=== PATIENT | female | born 1960 | race African-American/Black ===

== ENCOUNTER → 2018-09-22 | Outpatient (CLI) | payer MEDICAID ==
--- NOTE | 2018-09-23 14:09 | WOMENS IMAGING REPORT ---
EXAM DESCRIPTION: 3D SCREENING MAMMO BILAT COMPLETED DATE/TIME: 09/22/2018 3:12 pm REASON FOR STUDY: Z12.31 ROUTINE 3D BILATERAL SCREENING Z12.31 ENCNTR SCREEN MAMMOGRAM FOR MALIGNAN T NEOPLASM OF DARBY COMPARISON: None. TECHNIQUE: Standard craniocaudal and mediolateral oblique views of each breast recorded using digita l acquisition and breast tomosynthesis. LIMITATIONS: None. FINDINGS: No masses, calcifications or architectural distortion. No areas of suspicion. Read with the assistance of CAD. .[facility] - R2 Cenova Version 1.3 .[facility] Imaging - R2 Cenova Version 2.1 .[facility] - R2 Cenova Version 2.4 .[facility] [place] R2 Cenova Version 2.4 .[facility] BEDS AT THE [facility] - R2 Entrepreneur Version 9.2 IMPRESSION: NORMAL MAMMOGRAM. BIRADS 1. BREAST DENSITY: b. There are scattered areas of fibroglandular density. BIRAD: 1 NEGATIVE RECOMMENDATION: ROUTINE SCREENING COMMENT: The patient has been notified of the results by letter per SA requirements. Additional no tification policies are in place for contacting patient with suspicious or incomplete findings. Quality ID #[id number]: The [employer] recommends an annual screening mammogram for women aged 40 years or over. This facility utilizes a reminder system to ensure that all patients receive reminder letters, and/or direct phone calls for appointments. This includes reminders for routine scr eening mammograms, diagnostic mammograms, or other Breast Imaging Interventions when appropriate. Th is patient will be placed in the appropriate reminder system. The [employer] (ACR) has developed recommendations for screening MRI of the breast s in certain patient populations, to be used in conjunction with mammography. Breast MRI surveillanc e may be appropriate for women with more than 20% lifetime risk of developing breast cancer as deter mined by genetic testing, significant family history of the disease, or history of mantle radiation f or Hodgkins Disease. ACR Practice Guidelines 2008. DBT Technology DBT is a type of tomographic mammography. With conventional mammography, overlapping breast tissue ma y make lesions difficult to detect, even with good compression. DBT uses an x-ray tube that rotates a round the breast, taking images at different angles. These images are then combined to create thin sl ices of the breast that the radiologist can view as a 3D reconstruction. The [employer] unit can perform full-field digital mammograms (2D imaging); or DBT (3D imaging); or both, in a combination mode that quickly performs both the mammogram and the tomosynthesis scan while the breast is still compressed. PQRS 6045F: Fluoroscopic imaging is not utilized for breast tomosynthesis. TECHNICAL DOCUMENTATION: FINDING NUMBER: (1) ASSESSMENT: (1) JOB ID: [id number] [employer]- All Rights Reserved Reading location - IP/workstation name: [email or web address]-
== END ==
LOC: WI 14:50
PROVIDERS: ATTEND Internal Medicine Geriatric Medicine
DX: Z12.31 Encounter for screening mammogram for malignant neoplasm of breast (principal)
CPT/HCPCS: 77063; 77067

== ENCOUNTER 2020-02-20 14:55 | Emergency (ER) | payer MEDICAID ==
--- NOTE | 2020-02-20 15:08 | ER Document Report ---
ED General - General Chief Complaint: Psych Problem Stated Complaint: PSYCH Time Seen by Provider: 02/20/20 15:01 Primary Care Provider: JORGE HERNANDEZ MD [Primary Care Provider] - Follow up as needed Notes: 60-year-old female presents with bizarre behavior poor self-care brought in on IVC paperwork. She is a history of psychosis and dementia. She is unwilling to tell me why she is here and was going on. Multiple ED visits for decompensated schizophrenia. TRAVEL OUTSIDE OF THE [place] IN LAST 30 DAYS: No - Related Data Allergies/Adverse Reactions: Penicillins Allergy (Severe, Verified 01/19/16 03:59) Past Medical History - General Information source: Law Enforcement Cannot obtain history due to: Dementia - Social History Smoking Status: Current Every Day Smoker Family History: Reviewed & Not Pertinent - Past Medical History Cardiac Medical History: Reports: Hx Hypertension Neurological Medical History: Reports: Hx Cerebrovascular Accident Psychiatric Medical History: Reports: Hx Schizophrenia - Immunizations Immunizations up to date: No Hx Diphtheria, Pertussis, Tetanus Vaccination: Yes Review of Systems - Review of Systems Notes: REVIEW OF SYSTEMS Fuses PHYSICAL EXAMINATION General: Malodorous and poorly groomed Head: Atraumatic, normocephalic ENT: Mouth normal, oropharynx moist, no exudates or tonsillar enlargement Eyes: Conjunctiva normal, pupils equal, lids normal Neck: No JVD, supple, no guarding CVS: Normal rate, regular rhythm, no murmurs Resp: No resp distress, equal and normal breath sounds bilaterally GI: Nondistended, soft, no tenderness to palpation, no rebound or guarding Ext: No deformities, no edema, normal range of motion in upper and lower ext Back: No CVA or midline TTP Skin: No rash, warm Lymphatic: No lymphadeopathy noted Neuro: Awake, alert. Face symmetric. GCS 15. Course - Re-evaluation Re-evalutation: 02/20/20 15:24 Decompensated since nephronia plus or minus dementia. Will do basic medical work-up at this very likely to be primary psych. Defer to behavioral health regarding further treatment and plan but they have already said they are going to do a first eval and likely refer her out. Dr. Hollingsworth is aware of the patient. She is medically cleared. Discharge - Discharge Clinical Impression: Psychosis Qualifiers: Psychosis type: other Qualified Code(s): F28 - Other psychotic disorder not due to a substance or known physiological condition Condition: Good Disposition: PSYCH HOSP/UNIT Referrals: JORGE HERNANDEZ MD [Primary Care Provider] - Follow up as needed
[2020-02-20 16:57] LABS: ABSOLUTE EOSINOPHILS # (AUTO) 0.1 10^3/uL (0.0-0.6); ABSOLUTE LYMPHOCYTES (AUTO) 1.4 10^3/uL (0.5-4.7); ABSOLUTE MONOCYTES (AUTO) 0.3 10^3/uL (0.1-1.4); ABSOLUTE NEUT (AUTO) 1.7 10^3/uL (1.7-8.2); BASOPHILS % (AUTO) 0.8 % (0-2); EOSINOPHILS % (AUTO) 1.9 % (0-6); HEMOGLOBIN 11.7 g/dL (12.0-15.5); LYMPHOCYTES % (AUTO) 39.3 % (13-45); MEAN CORPUSCULAR HEMOGLOBIN 30.2 pg (27.0-33.4); MEAN CORPUSCULAR HGB CONC 33.4 g/dL (32.0-36.0); MEAN CORPUSCULAR VOLUME 90 fl (80-97); MONOCYTES % (AUTO) 9.5 % (3-13); PLATELET COUNT 147 10^3/uL (150-450); RED BLOOD COUNT 3.88 10^6/uL (3.72-5.28); RED CELL DISTRIBUTION WIDTH 14.3 % (11.5-14.0); SEGMENTED NEUTROPHILS % (AUTO) 48.5 % (42-78); TOTAL CELLS COUNTED % (AUTO) 100 %; WHITE BLOOD COUNT 3.5 10^3/uL (4.0-10.5)
[2020-02-20 17:01] LABS: APPEARANCE,URINE CLEAR; BILIRUBIN,URINE NEGATIVE (NEGATIVE); COLOR,URINE YELLOW; GLUCOSE, URINE NEGATIVE (NEGATIVE); KETONES,URINE NEGATIVE (NEGATIVE); LEUKOCYTE ESTERASE,URINE NEGATIVE (NEGATIVE); NITRITE,URINE NEGATIVE (NEGATIVE); PROTEIN,URINE 30 mg/dL (NEGATIVE); URINE SPECIFIC GRAVITY 1.026
[2020-02-20 17:10] LABS: URINE AMPHETAMINES SCREEN NEGATIVE; URINE BARBITURATES SCREEN NEGATIVE; URINE BENZODIAZEPINES SCREEN NEGATIVE; URINE COCAINE SCREEN NEGATIVE; URINE MARIJUANA (THC) SCREEN NEGATIVE; URINE METHADONE SCREEN NEGATIVE; URINE PHENCYCLIDINE SCREEN NEGATIVE
[2020-02-20 17:12] LABS: ALBUMIN 3.5 g/dL (3.5-5.0); ALKALINE PHOSPHATASE 75 U/L (38-126); ASPARTATE AMINO TRANSFERASE 23 U/L (14-36); BILIRUBIN,DIRECT 0.3 mg/dL (0.0-0.4); BILIRUBIN,TOTAL 0.6 mg/dL (0.2-1.3); BLOOD UREA NITROGEN 11 mg/dL (7-20); CALCIUM 8.9 mg/dL (8.4-10.2); GLUCOSE 87 mg/dL (75-110); POTASSIUM 3.4 mmol/L (3.6-5.0); TOTAL PROTEIN 6.5 g/dL (6.3-8.2)
[2020-02-20 17:14] LABS: ACETAMINOPHEN < 10 ug/mL (10-30); ALCOHOL < 10 mg/dL (NONE DETECTED); SALICYLATE < 1.0 mg/dL (2.0-20.0)
[2020-02-20 17:17] LABS: CHLORIDE 107 mmol/L (98-107)
[2020-02-20] MEDS: HYDROCHLOROTHIAZIDE 12.5 MG TABLET PO SCH (17:17)
[2020-02-20] MEDS: LISINOPRIL 10 MG TABLET PO SCH (17:17)
[2020-02-20 17:18] LABS: ANION GAP 5 (5-19); CARBON DIOXIDE 29 mmol/L (22-30)
--- NOTE | 2020-02-20 17:49 | ER Document Report ---
Doctor's Note Notes: 02/20/20 14:08 Received call from [facility] dispatch who patched through an officer on scene with patient at a motel. He reported they were contacted by the Patient's son who reported his mother had become increasingly aggressive, yelling at people, urinating on herself, walking around half dressed, and being medication non-comp liant. The officer reported the hotel management indicated they would like the Patient removed from the property as they feel she has a mental health problem and requires treatment. They found her sitting in a chair on the front porch of the hotel with only a shirt on, sitting there for the last 24 hours. She rents a room at the hotel but the room is ruined from the patient urinating on the carpet, the bed, etc. Patient reportedly was sleeping on the stairs to the hotel last evening. Patient was alert and oriented but resistant to help, refusing to leave and her family was not cooperative either. Patient is known to have a significant mental health problem and a history of stroke dating back at least 9 years, possibly longer. Based on her ongoing psychiatric history, medical history, family (possible patient history) of substance abuse, current inability to care for self, make decisions regarding safety, engage in proper hygiene, etc., Patient was placed on a 24-hour petition. [facility] was advised to contact EMS for transport as there was concern for Patient decompensation based on her medical history. This craft worker spoke with Tryel Arango, [employer] Clerk on scene and explained the rationale for EMS transport.
[2020-02-20] MEDS ORDERED: CLONIDINE 0.1 MG/24 HR PATCH.TDWK TD ONE (18:51)
--- NOTE | 2020-02-20 18:52 | ER Document Report ---
Doctor's Note Notes: 02/20/20 18:52 Per psychiatric recommendations patient has been written for clonidine 1 mg patch as well as BuSpar 5 mg p.o. twice daily.
[2020-02-20] MEDS: BUSPIRONE HCL 10 MG TABLET PO SCH (19:43)
[2020-02-21] MEDS: BUSPIRONE HCL 10 MG TABLET PO SCH (09:18)
[2020-02-21] MEDS: LISINOPRIL 10 MG TABLET PO SCH (09:18)
[2020-02-21] MEDS: HYDROCHLOROTHIAZIDE 12.5 MG TABLET PO SCH (09:19)
--- NOTE | 2020-02-21 12:53 | PSYCHOLOGICAL NOTE ---
Psych Note - Psych Note Date seen by psych provider: 02/21/20 Time seen by psych provider: 11:05 Psych Note: Reason for Consult: IVC Patient arrived to [facility] ED via EMS under IVC based on her ongoing psychiatric history, medical history, family (possible patient history) of substance abuse, current inability to care for self, make decisions regarding safety, engage in proper hygiene, etc. There was concerns reported by patient's son and hotel staff. Patient's son reported his mother had become increasingly aggressive, yelling at people, urinating on herself, walking around half dressed, and being medication non- compliant. She rents a room at the hotel but the room is ruined from the patient urinating on the carpet, the bed, etc. Patient reportedly was sleeping on the stairs to the hotel last evening. Law enforcement found the patient sitting in a chair on the front porch of the hotel with only a shirt on; she had been sitting there for the last 24 hours. Check in conducted with patient: Today patient engages with clinician appropriately. She reports she got her shot this month at [facility] and is supposed to take pills everyday. She confirms she is taking them. Patient asks if she can go home today. She confirms she had a stroke in 2010 and reports she followed up with neurology. She states they told her is was good and didn't need further follow up. She denies having any further scans after that hospital visit. Patient reports she is planing to live with a friend by the name of Nely Gandara- [phone] Clinician attempted contact with Ms Gandara ([phone])- phone continued to ring with no answer or answering system Clinician contacted [facility] APS worker Yolette Anoop [phone]. She reports the patient went to her medical provider and psychiatric provider on 02/14/2020. During her psychiatric appointment she received a monthly decanoate shot. She reports the patient had previously been off her psychiatric medications for a significant time. Patient's baseline presentation includes having very loud conversational speech, irritability and resisting assistance from other's that are not family. Nely is the patient's longtime family friend (cell [phone]) She disclosed the patient does have a room available with a [employer] [facility] [employer] ([phone])that was set up by [employer]. The only stipulation is that she has to transfer to [facility] for Day program services (advertising account manager with [facility] is Roxy Dowell [phone]). She continued to report that [employer] paid for the week at the hotel. Patient is in the program called back to home however is on the wait list as funding for that program is on hold. She reports that she has documentation dating back to 2011 that the patient wears pull-ups because of urine incontinence. Clinician attempted contact with Ms Gandara ([phone]); left message. Clinician contacted Darling, patient's daughter, ([phone]); left message. Chart Review: 10/2010 patient was admitted and treated for a CVA history of paranoid schizophrenia with [facility] as her provider Clinician presentation: Significant difficulty ambulating Loud conversational speech poor impulse control Impression/Plan: Patient is recommended for rescind of 24 petition for evaluation is cleared from acute psychiatric services. Patient received injection psychiatric medications on 02/14/2020 with her psychiatric provider, [facility]. There was significant concern in regards to urine throughout her hotel room and being only half dress. Through observation is very clear that patient has difficulty with her ADLs and that it is probable her physical limitations resulted in the hotel room presentation and inability to completely dress herself. Patient has a history of urine incontinence documented back to 2011. At this time the patient denies any suicidal or homicidal ideations and is not demonstrating any behaviors of responding to internal stimuli. Patient is identifying wanting to go to her friend's home, DSS APS is involved. Patient has been restarted on psychiatric medications this month by her outpatient provider after significant time of being off of them demonstrating positive insight and judgment. Dr. Hollingsworth was consulted in the care management of this patient; attending physicians in agreement with recommendations and disposition.
[2020-02-21 16:43] VITALS: BP 187/109
--- NOTE | 2020-02-21 21:27 | PSYCHOLOGICAL NOTE ---
Psych Note - Psych Note Date seen by psych provider: 02/20/20 Time seen by psych provider: 15:13 - DSS/APS collateral from [id number]. Psych Note: Patient is a 60 year old female who presented to the Emergency Department late afternoon via EMS after standing in front of the local hotel she's staying at for the past 24 hours, with no pants/bottoms on, urinating on self, not allowing medical treatment, and with altered mental status. [employer] was involved and called their Crisis Counselor. Patient immediately being put on a 24 Hour Petition for Evaluation. From [id number] obtained collateral from DSS/APS worker Yolette Davalos ([phone]) in person. She was on site for another patient when she heard this patient. She stated they have an open case. She reported she just met with patient Wednesday and she was well. She identified patient was staying at the hotel, is incontinent and hotel was made aware. She acknowledged patient has a history of noncompliance with treatment and medication. Her outpatient provider was [place], she had not gone in awhile as she quit all services and moved back in with family, then family friend Veronica took her to [facility] 02/14/2020 where she got an Abilify 400MG injection and Cogentin. She also noted Ingrezza capsule 80MG. She also saw Primary Care Physician Dr. Rios on 02/14/2020 for incontinence and was provided depends. She stated [facility] diagnosed patient with Schizophrenia and Drug Induced Tardive Dyskinesia. She stated they have a Family Home approved but patient has to go back to [place] ([facility] The issue is patient is adamant about living with family which does not seem to be an option. She described patient as a "frequent flyer for [facility] and [facility]." She noted medical history of stroke, asthma and pre diabetic. She stated "they are allegations patient uses crack but we are not certain." Urine Drug Screen was negative. Chart review revealed patient has been seen by [facility] Behavioral Health going back to 2012. In 2014 she was going to [facility], APS was involved, referral to [facility] was made and MS Orozco family friend was part of discharge/who patient was staying with. Head CTs as old as 2010 noted old lacunar infarcts in left posterior thalamus. This causes concerns for neurodegenerative processes since stroke/CVA is brain trauma. Later evening this clinician went to talk with patient and make her sexton of plan of care. She stated she was told she could leave today. She raised her voice and talked over this clinician. She was able to calm down quickly. She remained in her room even when upset about having to stay. Clinical Presentation: Altered Mental Status History of Schizophrenia per DSS per [facility] Medication recommendations made by the psychiatric medication provider Dr. Kiet HOOKS., includes: Request Head CT given stroke/CVA history Add Clonidine 0.1MG patch weekly for calming effect Add Buspar 5MG twice a day for anxiety/calming effec Impression/Plan: Recommendation for 24 Hour Petition for Evaluation. Patient presented altered mental status. She is well known to the [facility] Behavioral Health team and DSS/APS is involved. She was noncompliant with treatment/medication for awhile until 02/14/2020 when friend took her to [facility] and she got long lasting Abilify injection. DSS/APS noted Family Home approved but patient has to transfer outpatient services to [place]. Patient wants to reside with family which does not seem to be an options. Will reassess tomorrow. Consulted with Dr. Hollingsworth regarding the management and care of patient. ED Physician in agreement with recommendations.
== END 2020-02-21 17:46 | disposition home or self-care (01) ==
LOC: ER 14:55
DX: R40.4 Transient alteration of awareness (principal); F03.90 Unspecified dementia, unspecified severity, without behavioral disturbance, psychotic disturbance, mood disturbance, and anxiety; F20.9 Schizophrenia, unspecified; Z74.09 Other reduced mobility; F17.200 Nicotine dependence, unspecified, uncomplicated; I10 Essential (primary) hypertension
CPT/HCPCS: 99285; 36415; 80307 ×4; 85025; 80053; 81001; J3490 ×5